=== PATIENT | female | born 1955 | race American Indian/Alaskan Native ===

== ENCOUNTER 2023-06-04 04:31 | Day surgery (SDC) | payer OTHER ==
[2023-05-31 13:32] VITALS: BMI 26.8
[2023-06-04 10:01] VITALS: TEMP 97.1
[2023-06-04 10:17] VITALS: BP 115/62; PULSE 59; RESP 16
== END 2023-06-04 10:26 | disposition home or self-care (01) ==
LOC: JASU-ENDO 04:31
PROVIDERS: ATTEND Internal Medicine Gastroenterology
PROC: 0DBL8ZX Excision of Transverse Colon, Via Natural or Artificial Opening Endoscopic, Diagnostic (ICD-10-PCS; principal; 2023-06-04 09:00)
DX: Z12.11 Encounter for screening for malignant neoplasm of colon (principal); D12.3 Benign neoplasm of transverse colon; K57.30 Diverticulosis of large intestine without perforation or abscess without bleeding
CPT/HCPCS: 88305-TC

== ENCOUNTER 2024-05-17 04:14 | Day surgery (SDC) | payer OTHER ==
[2024-05-10 14:19] VITALS: BMI 23.0
[2024-05-17] MEDS ORDERED: IBUPROFEN 400 MG TABLET (FP) PO PRN (11:08)
[2024-05-17] MEDS ORDERED: ACETAMINOPHEN 325 MG TABLET (FP) PO PRN (11:08)
[2024-05-17] MEDS ORDERED: PROPOFOL 20 ML ONE (11:10)
[2024-05-17] MEDS ORDERED: MIDAZOLAM HCL 2 MG/2 ML SINGLE DOSE VIAL ONE (11:10)
[2024-05-17 15:07] VITALS: BP 130/64; PULSE 72; RESP 18; TEMP 97.7
== END 2024-05-17 15:18 | disposition home or self-care (01) ==
LOC: JASU-SURG 04:14
PROVIDERS: ATTEND Obstetrics & Gynecology
PROC: 0UDB8ZZ Extraction of Endometrium, Via Natural or Artificial Opening Endoscopic (ICD-10-PCS; principal; 2024-05-17 12:00)
DX: N95.0 Postmenopausal bleeding (principal)
CPT/HCPCS: 88305-TC; 94760